=== PATIENT | male | born 1985 | race Caucasian/White ===

== ENCOUNTER 2021-04-05 12:43 | Outpatient (CLI) | payer MEDICAID | END 2021-04-05 12:44 | disposition critical access hospital (66) | LOC: EMS 12:43 | DX: R41.82 Altered mental status, unspecified (principal) | CPT/HCPCS: A0425; A0429; A0999 ==

== ENCOUNTER 2021-04-05 13:03 | Emergency (ER) | payer MEDICAID ==
--- NOTE | 2021-04-05 16:43 | ED Physician Documentation ---
History of Present Illness - Stated complaint Stated Complaint: ETOH - Chief complaint Chief Complaint: MHE - History obtained from History obtained from: Patient - History of Present Illness Timing: Today Pain level max: 0 Pain level now: 0 - Additonal information Additional information: Patient is a 35-year-old male who presented to [facility] stabilization today for detox. He states he drinks about a gallon of vodka per day. He was found to be too intoxicated for detox and sent here to allow him to sober for a few hours. He was having difficulty standing and walking. Patient currently has no complaints. No complaints of pain. Nothing makes it better or worse Review of Systems Constitutional: denies: Fever, Chills GI: denies: Vomiting, Diarrhea Skin: denies: Rash Musculoskeletal: denies: Neck pain, Back pain Neurologic: denies: Headache PD PAST MEDICAL HISTORY - Past Medical History Past Medical History: No - Past Surgical History Past Surgical History: No - Allergies Allergies/Adverse Reactions: Allergies Allergy/AdvReac Type Severity Reaction Status Date / Time No Known Drug Allergies Allergy Verified 04/05/21 13:15 - Living Situation Living Situation: reports: With family Living Arrangement: reports: At home - Social History Does the pt drink ETOH?: Yes ETOH Use: Liquor - Family History Family history: reports: Non contributory PD ED PE NORMAL - Vitals Vital signs reviewed: Yes - General General: Alert and oriented X 3, No acute distress, Well developed/nourished - HEENT HEENT: PERRL, Moist mucous membranes - Neck Neck: Supple, no meningeal sign - Cardiac Cardiac: RRR, Strong equal pulses - Respiratory Respiratory: No respiratory distress, Clear bilaterally - Abdomen Abdomen: Soft, Non tender, Non distended - Derm Derm: Warm and dry - Extremities Extremities: No edema, No calf tenderness / cord - Neuro Neuro: Alert and oriented X 3 - Psych Psych: Normal mood, Normal affect Results - Vitals Vitals: Vital Signs - 24 hr 04/05/21 04/05/21 13:08 16:48 Temperature 36.8 C 36.9 C Heart Rate 116 H 106 H Respiratory 18 12 Rate Blood Pressure 154/106 H 149/94 H O2 Saturation 98 100 Oxygen O2 Source Room air PD MEDICAL DECISION MAKING - ED course Complexity details: considered differential, d/w patient ED course: Patient is a longstanding alcoholic. He was allowed to sober in the department for several hours. He is able to ambulate without any difficulty with a steady gait. Clear speech. Patient appears stable at this time for detox. Eating and drinking without difficulty here. No history of seizures. Patient declines blood work. Patient counseled regarding signs and symptoms for which I believe and urgent re-evaluation would be necessary. Patient with good understanding of and agreement to plan and is comfortable going home at this time This document was made in part using voice recognition software. While efforts are made to proofread this document, sound alike and grammatical errors may occur. Patient is going to go back to the stabilization facility for further detox and care. Departure - Departure Disposition: 01 Home, Self Care Clinical Impression: Alcohol intoxication Qualifiers: Complication of substance-induced condition: uncomplicated Qualified Code(s): F10.920 - Alcohol use, unspecified with intoxication, uncomplicated Condition: Good Instructions: ED Alcohol Intoxication Comments: [facility] [address] [address] You may return to the [facility] for detox.
[2021-04-05 16:48] VITALS: BP 149/94
== END 2021-04-05 17:21 | disposition home or self-care (01) ==
LOC: ED 13:03
DX: F10.129 Alcohol abuse with intoxication, unspecified (principal)
CPT/HCPCS: 99282; 99283

== ENCOUNTER 2021-04-08 10:32 | Outpatient (CLI) | payer MEDICAID | END 2021-04-08 10:33 | disposition critical access hospital (66) | LOC: EMS 10:32 | DX: R07.9 Chest pain, unspecified (principal) | CPT/HCPCS: A0425; A0427; A0999 ==

== ENCOUNTER 2021-04-08 10:55 | Emergency (ER) | payer MEDICAID ==
--- NOTE | 2021-04-08 11:17 | ED Physician Documentation ---
PD HPI CHEST PAIN - Stated complaint Stated Complaint: CP - Chief complaint Chief Complaint: Cardiac - History obtained from History obtained from: Patient - Additional information Additional information: He quit drinking 2 days ago and went to [facility]. Last drink was he thinks probably afternoon. He was drinking about three quarters of a gallon of vodka a day. They are giving him Ativan there but he feels like his alcohol symptoms are uncontrolled despite that. He also has substernal chest pressure, nonradiating. There was no injury. No recent seizure but he has seized in the past with alcohol withdrawal. No other heart / health issues. Review of Systems Ten Systems: 10 systems reviewed and negative Constitutional: reports: Reviewed and negative Eyes: reports: Reviewed and negative Ears: reports: Reviewed and negative Nose: reports: Reviewed and negative Throat: reports: Reviewed and negative Cardiac: reports: Reviewed and negative PD PAST MEDICAL HISTORY - Past Surgical History Past Surgical History: No - Allergies Allergies/Adverse Reactions: Allergies Allergy/AdvReac Type Severity Reaction Status Date / Time No Known Drug Allergies Allergy Verified 04/08/21 11:10 - Social History Does the pt drink ETOH?: Yes PD ED PE NORMAL - Vitals Vital signs reviewed: Yes - General General: Alert and oriented X 3, Other (He is shaky, but alert and oriented with normal mental status, modestly hypertensive but not tachycardic) - HEENT HEENT: PERRL, EOMI - Neck Neck: Supple, no meningeal sign, No bony TTP - Cardiac Cardiac: RRR, No murmur - Respiratory Respiratory: No respiratory distress, Clear bilaterally - Abdomen Abdomen: Normal bowel sounds, Soft, Non tender - Back Back: No CVA TTP, No spinal TTP - Derm Derm: Normal color, Warm and dry - Extremities Extremities: No edema, No calf tenderness / cord - Neuro Neuro: Alert and oriented X 3, No motor deficit, No sensory deficit, Normal speech Results - Vitals Vitals: Vital Signs - 24 hr 04/08/21 04/08/21 04/08/21 10:54 11:10 12:20 Temperature 37.6 C Heart Rate 78 87 102 H Respiratory 18 16 20 Rate Blood Pressure 141/92 H 141/92 H 136/88 H O2 Saturation 98 100 Oxygen O2 Source Room air - EKG (time done) 1123 Rate: Rate (enter#) (87) Rhythm: NSR [place]: Normal Intervals: Normal DE QRS: Normal Ischemia: ST elevation c/w repol. No: ST elevation c/w ischemia, ST depression - Labs Labs: Laboratory Tests 04/08/21 04/08/21 04/08/21 11:29 11:29 11:29 WBC 9.4 RBC 5.11 Hgb 16.3 Hct 45.3 MCV 88.6 MCH 31.9 H MCHC 36.0 RDW 14.5 Plt Count 254 MPV 9.5 Neut # (Auto) 6.0 Lymph # (Auto) 2.4 Bland # (Auto) 0.7 Eos # (Auto) 0.1 Baso # (Auto) 0.0 Absolute Nucleated RBC 0.00 Nucleated RBC % 0.0 Sodium 138 Potassium 4.3 Chloride 105 Carbon Dioxide 24 Anion Gap 9.0 BUN 13 Creatinine 0.7 Estimated GFR (MDRD) 127 Glucose 89 Calcium 9.1 Magnesium 2.2 Total Bilirubin 0.9 AST 86 H ALT 77 H Alkaline Phosphatase 88 Troponin I High Sens 3.2 Total Protein 6.4 L Albumin 3.8 Globulin 2.6 Albumin/Globulin Ratio 1.5 Ethyl Alcohol < 5.0 PD MEDICAL DECISION MAKING - ED course ED course: 35-year-old gentleman who presents with moderate alcohol withdrawal, no seizures. He is hypertensive and shaky. He was ministered a milligram of Ativan and visibly looks better, but still felt like he was having active withdrawal so this was followed by IM phenobarbital to give him some long-acting medication pending transfer back to detox. He also received IV thiamine here. Departure - Departure Disposition: 01 Home, Self Care Clinical Impression: Alcohol withdrawal Qualifiers: Complication of substance-induced condition: uncomplicated Qualified Code(s): F10.230 - Alcohol dependence with withdrawal, uncomplicated Condition: Good Record reviewed to determine appropriate education?: Yes Instructions: ED Withdrawal Alcohol Comments: Morgan was seen today for moderate alcohol withdrawal. He received 1 mg of IV Ativan, 100 mg of IV thiamine. This was followed by 130 mg of IM phenobarbital. Continue alcohol withdrawal treatment as per your routine and return if worsening. Discharge Date/Time: 04/08/21 14:29
[2021-04-08] MEDS: SODIUM CHLORIDE 0.9% 1,000 ML IV STA (11:22)
[2021-04-08] MEDS: LORazepam 2 MG/ML VIAL IVP STA (11:22)
[2021-04-08 11:39] LABS: BASOPHILS % (AUTO) 0.2 %; EOSINOPHILS # (AUTO) 0.1 10^3/uL (0.0-0.7); EOSINOPHILS % (AUTO) 1.2 %; HCT - HEMATOCRIT 45.3 % (42.0-52.0); HGB - HEMOGLOBIN 16.3 g/dL (14.0-18.0); LYMPHOCYTES # (AUTO) 2.4 10^3/uL (1.5-3.5); LYMPHOCYTES % (AUTO) 25.9 %; MEAN CORPUSCULAR HEMOGLOBIN 31.9 pg (27.0-31.0); MEAN CORPUSCULAR VOLUME 88.6 fL (80.0-94.0); MEAN PLATELET VOLUME 9.5 fL (7.4-11.4); MONOCYTES # (AUTO) 0.7 10^3/uL (0.0-1.0); MONOCYTES % (AUTO) 7.8 %; NEUTROPHILS % (AUTO) 64.2 %; PLT - PLATELET COUNT 254 10^3/uL (130-450); RED BLOOD COUNT 5.11 10^6/uL (4.70-6.10); RED CELL DISTRIBUTION WIDTH 14.5 % (12.0-15.0); WHITE BLOOD COUNT 9.4 x10^3/uL (4.8-10.8)
[2021-04-08 11:48] LABS: ALBUMIN 3.8 g/dL (3.2-5.5); ALBUMIN/GLOBULIN RATIO 1.5 (1.0-2.2); ALKALINE PHOSPHATASE 88 IU/L (42-121); ALT ALANINE AMINOTRANSFERASE 77 IU/L (10-60); AST ASPARTATE AMINOTRANSFERASE 86 IU/L (10-42); BILIRUBIN,TOTAL 0.9 mg/dL (0.2-1.0); BUN - BLOOD UREA NITROGEN 13 mg/dL (6-20); CALCIUM 9.1 mg/dL (8.5-10.3); CARBON DIOXIDE - CO2 24 mmol/L (21-32); CHLORIDE 105 mmol/L (101-111); CREATININE 0.7 mg/dL (0.6-1.2); ETOH - ETHANOL < 5.0 mg/dL; GFR - MDRD 127 (>89); GLUCOSE 89 mg/dL (70-100); MAGNESIUM 2.2 mg/dL (1.7-2.8); POTASSIUM 4.3 mmol/L (3.5-5.0); SODIUM 138 mmol/L (135-145); TOTAL PROTEIN 6.4 g/dL (6.7-8.2)
[2021-04-08] MEDS: THIAMINE INJ 100 MG in SODIUM CHLORIDE 0.9% 50 ML IV STA (12:19)
[2021-04-08 12:21] VITALS: BP 136/88
[2021-04-08] MEDS: PHENobarbital 65 MG/ML VIAL IM STA (13:25)
== END 2021-04-08 14:29 | disposition home or self-care (01) ==
LOC: EDUNIT# → ED 10:55
DX: F10.230 Alcohol dependence with withdrawal, uncomplicated (principal)
CPT/HCPCS: 36415; 80053; 80320; 83735; 84484; 85025; 93005; 96365; 96372; 96375; 99283; 99284; J2060; J3411; J7040